=== PATIENT | male | born 1985 | race American Indian/Alaskan Native ===

== ENCOUNTER 2017-02-21 22:58 | Emergency (ER) | payer OTHER ==
[2017-02-22 01:15] LABS: Hematocrit 46.1 % (35.5-45.6); Hemoglobin 14.4 gm/dl (11.8-15.2); Mean Corpuscular HGB Conc 31 % (32-34); Mean Corpuscular Volume 73 fl (84-94); Platelet Count 291 K/mm3 (140-440); Red Blood Count 6.31 M/mm3 (3.65-5.03); Red Cell Distribution Width 14.4 % (13.2-15.2); White Blood Count 13.5 K/mm3 (4.5-11.0)
[2017-02-22 01:29] LABS: Mean Corpuscular Hemoglobin 23 pg (28-32)
[2017-02-22 01:31] LABS: Anion Gap 22 mmol/L; Blood Urea Nitrogen 12 mg/dL (9-20); Calcium 9.7 mg/dL (8.4-10.2); Carbon Dioxide 23 mmol/L (22-30); Chloride 101.5 mmol/L (98-107); Glucose 112 mg/dL (75-100); Potassium 4.7 mmol/L (3.6-5.0); Sodium 142 mmol/L (137-145)
[2017-02-22] MEDS ORDERED: ATIVAN IV ONE (02:00)
[2017-02-22] MEDS ORDERED: FLEXERIL PO ONE (02:06)
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
[2017-02-22 05:39] VITALS: BP 139/74
== END 2017-02-22 05:30 | disposition home or self-care (01) ==
LOC: ED 22:58
DX: S16.1XXA Strain of muscle, fascia and tendon at neck level, initial encounter (principal); R56.9 Unspecified convulsions; F17.200 Nicotine dependence, unspecified, uncomplicated; X58.XXXA Exposure to other specified factors, initial encounter; Y93.89 Activity, other specified; Y99.8 Other external cause status; Y92.89 Other specified places as the place of occurrence of the external cause
CPT/HCPCS: 36415; 70450; 72125; 80048; 80156; 82962; 85027; 96374; 99284; J2060